=== PATIENT | female | born 1960 | race Two or more races ===

== ENCOUNTER 2016-10-16 10:13 | Emergency (ER) | payer OTHER ==
[2016-10-16 10:20] VITALS: BMI 36.8
--- NOTE | 2016-10-16 10:26 | PDOC ---
History of Present Illness - History of Present Illness Initial Comments: 10/16/16 10:51 The patient is a 56 year old female, with a significant past medical history hypertension, hyperlipidemia, and depression, taking metformin in anticipation for Lap Band procedure, who presents to the emergency department with one week of right lower back pain which radiates to the right side of her abdomen and right lower extremity. She reports the pain is sharp and constant. She describes the pain as a cecily as the pain radiates to the right side of her lower abdomen from her lower back. She states her pain is exacerbated when she bends over or lifts her right lower extremity. She denies chest pain, shortness of breath, headache and dizziness. She denies fever, chills, nausea, vomit, diarrhea and constipation. She denies dysuria, frequency, urgency and hematuria. Allergies: Penicillins Social history: denies toxic habits <Camila Link - Last Filed: 10/16/16 11:34> <Eric Cox - Last Filed: 10/16/16 13:34> - General Chief Complaint: Pain Stated Complaint: RT SIDE PAIN Time Seen by Provider: 10/16/16 10:25 Past History <Camila Link - Last Filed: 10/16/16 11:34> - Past Medical History HTN: Yes - Psycho/Social/Smoking Cessation Hx Anxiety: No Suicidal Ideation: No Smoking History: Never smoked Hx Alcohol Use: Yes (SOCIAL) Drug/Substance Use Hx: No Substance Use Type: None <Eric Cox - Last Filed: 10/16/16 13:34> - Past Medical History Allergies/Adverse Reactions: Allergies Allergy/AdvReac Type Severity Reaction Status Date / Time Penicillins Allergy Rash Verified 10/16/16 10:20 Home Medications: Ambulatory Orders Amlodipine Besylate [Norvasc -] 5 mg PO DAILY 10/16/16 Atorvastatin Ca [Lipitor] 40 mg PO HS 10/16/16 Benazepril HCl 40 mg PO DAILY 10/16/16 Furosemide [Lasix] 40 mg PO DAILY 10/16/16 Metformin HCl 500 mg PO BID 10/16/16 Ondansetron [Zofran Odt -] 4 mg SL TID #21 od.tablet 10/16/16 Oxycodone HCl/Acetaminophen [Percocet 5-325 mg Tablet] 1 - 2 tab PO Q6H #20 tab MDD 6 10/16/16 Sulfamethoxazole/Trimethoprim [Bactrim Ds Tablet] 1 each PO BID #20 tablet 10/16 Venlafaxine HCl ER [Effexor Xr -] 75 mg PO DAILY 10/16/16 Review of Systems - Review of Systems Able to Perform ROS?: Yes Comments:: 10/16/16 10:51 GENERAL/CONSTITUTIONAL: No fever or chills. No weakness. HEAD, EYES, EARS, NOSE AND THROAT: No change in vision. No ear pain or discharge. No sore throat. CARDIOVASCULAR: No chest pain or shortness of breath. RESPIRATORY: No cough, wheezing, or hemoptysis. GASTROINTESTINAL: No nausea, vomiting, diarrhea or constipation. GENITOURINARY: No dysuria, frequency, or change in urination. MUSCULOSKELETAL: (+) Right sided low back pain radiating to RLE. No joint or muscle swelling or pain. No neck pain. SKIN: No rash NEUROLOGIC: No headache, vertigo, loss of consciousness, or change in strength/ sensation. ENDOCRINE: No increased thirst. No abnormal weight change. HEMATOLOGIC/LYMPHATIC: No anemia, easy bleeding, or history of blood clots. ALLERGIC/IMMUNOLOGIC: No hives or skin allergy. <Camila Link - Last Filed: 10/16/16 11:34> *Physical Exam - Vital Signs Last Vital Signs Temp Pulse Resp BP Pulse Ox 98.9 F 74 20 142/71 100 10/16/16 10:16 10/16/16 10:16 10/16/16 10:16 10/16/16 10:16 10/16/16 10:16 - Physical Exam Comments: 10/16/16 10:52 GENERAL: Awake, alert, and fully oriented, in no acute distress HEAD: No signs of trauma EYES: PERRLA, EOMI, sclera anicteric, conjunctiva clear ENT: Auricles normal inspection, hearing grossly normal, nares patent, oropharynx clear without exudates. Moist mucosa NECK: Normal ROM, supple, no lymphadenopathy, JVD, or masses LUNGS: Breath sounds equal, clear to auscultation bilaterally. No wheezes, and no crackles HEART: Regular rate and rhythm, normal S1 and S2, no murmurs, rubs or gallops ABDOMEN: Soft, nontender, normoactive bowel sounds. No guarding, no rebound. No masses EXTREMITIES: Normal range of motion, no edema. No clubbing or cyanosis. No cords, erythema, or tenderness MUSCULOSKELETAL: (+) tender to palpation at sciatic notch. Positive straight leg raise on the right. NEUROLOGICAL: Cranial nerves II through XII grossly intact. Normal speech, normal gait SKIN: Warm, Dry, normal turgor, no rashes or lesions noted. <Camila Link - Last Filed: 10/16/16 11:34> - Vital Signs Last Vital Signs Temp Pulse Resp BP Pulse Ox 98.9 F 74 20 142/71 100 10/16/16 10:16 10/16/16 10:16 10/16/16 10:16 10/16/16 10:16 10/16/16 10:16 <Eric Cox - Last Filed: 10/16/16 13:34> ED Treatment Course - LABORATORY CBC & Chemistry Diagram: 10/16/16 11:00 10/16/16 11:00 - RADIOLOGY Radiograph Interpretation: 10/16/16 11:34 Lumbar-Sacral Xray was read by Dr. Coon at 11:18 Impression: Minimal degenerative changes. No acute pathology. <Camila Link - Last Filed: 10/16/16 11:34> - LABORATORY CBC & Chemistry Diagram: 10/16/16 11:00 10/16/16 11:00 <Eric Cox - Last Filed: 10/16/16 13:34> Medical Decision Making - Medical Decision Making 10/16/16 10:53 The patient is a 56 year old female who presents with right lower back pain which radiates to her right lower abdomen and down her right lower extremity for about a week. The patients medical history is significant for hypertension, hyperlipidemia, and depression, and states she is taking metformin in anticipation for Lap Band procedure, I will obtain CBC, CMP, urinalysis, urine culture, and Lumbar-sacral Xray to rule out sciatica and UTI. <Camila Link - Last Filed: 10/16/16 11:34> *DC/Admit/Observation/Transfer - Attestations Scribe Attestion: 10/16/16 10:54 Documentation prepared by Camila Link, acting as medical logistics specialist for Eric Cox MD <Camila Link - Last Filed: 10/16/16 11:34> - Attestations Physician Attestion: 10/16/16 10:26 I, Dr. Eric Cox, attest that this document has been prepared under my direction and personally reviewed by me in its entirety. I further attest, that it accurately reflects all work, treatment, procedures and medical decision -making performed by me. <Eric Cox - Last Filed: 10/16/16 13:34> Diagnosis at time of Disposition: Sciatica of right side Urinary tract infection Qualifiers: Urinary tract infection type: acute cystitis Hematuria presence: without hematuria Qualified Code(s): N30.00 - Acute cystitis without hematuria - Prescriptions Prescriptions: Sulfamethoxazole/Trimethoprim [Bactrim Ds Tablet] 1 each PO BID #20 tablet Oxycodone HCl/Acetaminophen [Percocet 5-325 mg Tablet] 1 - 2 tab PO Q6H #20 tab MDD 6 Ondansetron [Zofran Odt -] 4 mg SL TID #21 od.tablet - Patient Instructions Printed Discharge Instructions: DI for Sciatica, DI for Back Pain With Sciatica , DI for Urinary Tract Infection (UTI) Additional Instructions: Mrs Braxton- Alcira this hurts so much. You have two problems. UTI and Sciatica. Follow up with your doctor this week. Percocet is for pain- it may upset your stomach so take the Zofran ODT before you take the percocet. Do not drive if you take the percocet. Percocet is for really bad pain, so only take it if you really need it, otherwise take motrin. Bactrim is the antibiotic for your Urinary Tract Infection.. Take it twice a day for ten days. Return to us if any problems. Best- Dr. Eric Cox
[2016-10-16] MEDS ORDERED: KETOROLAC TROMETHAMINE 60 MG/2 ML VIAL IM ONE (10:43)
[2016-10-16] MEDS ORDERED: KETOROLAC TROMETHAMINE 60 MG/2 ML VIAL ONE (10:47)
[2016-10-16 11:14] LABS: BASOPHIL 0.7 % (0-2.0); EOSINOPHIL 1.8 % (0-4.5); MCH 27.7 pg (25.7-33.7); MCHC 33.1 g/dl (32.0-36.0); MEAN CELL VOLUME 83.6 fl (80-96); MEAN PLT VOLUME 10.4 fl (7.5-11.1); NEUTROPHILS 71.3 % (42.8-82.8); PLATELET COUNT 210 K/MM3 (134-434); RDW 13.7 % (11.6-15.6); WHITE BLOOD COUNT 12.4 K/mm3 (4.0-10.0)
[2016-10-16 11:24] LABS: URINE APPEARANCE CLEAR; URINE BILIRUBIN NEGATIVE (NEGATIVE); URINE BLOOD NEGATIVE (NEGATIVE); URINE COLOR YELLOW; URINE GLUCOSE (UA) NEGATIVE (NEGATIVE); URINE KETONE NEGATIVE (NEGATIVE); URINE NITRITE NEGATIVE (NEGATIVE); URINE PROTEIN NEGATIVE (NEGATIVE); URINE UROBILINOGEN NEGATIVE E.U./dl (0.2-1.0)
[2016-10-16 11:25] LABS: URINE LEUK ESTERASE 3+ (NEGATIVE); URINE MUCUS FEW; URINE RBC 3 /hpf (0-3); URINE WBC 20 /hpf (3-5)
[2016-10-16 11:43] LABS: ALBUMIN 3.5 g/dl (3.4-5.0); ALK PHOS 110 U/L (45-117); ANION GAP 9 (8-16); BILIRUBIN,TOTAL 0.5 mg/dL (0.2-1.0); CALCIUM 9.2 mg/dL (8.5-10.1); CO2 31 mmol/L (21-32); CREATININE 0.6 mg/dL (0.55-1.02); GLUCOSE,RANDOM 95 mg/dL (74-106); SGOT/AST 10 U/L (15-37); SGPT/ALT 15 U/L (12-78)
[2016-10-16 12:18] VITALS: BP 132/67; PULSE 58; TEMP 98.4
[2016-10-16] MEDS ORDERED: SULFAMETHOXAZOLE/TRIMETHOPRIM 800MG/160MG D.S. TABLET PO ONE (13:28)
[2016-10-16] MEDS ORDERED: SULFAMETHOXAZOLE/TRIMETHOPRIM 800MG/160MG D.S. TABLET ONE (13:37)
== END 2016-10-16 13:43 | disposition home or self-care (01) ==
LOC: JER 10:13
PROC: 3E0233Z Introduction of Anti-inflammatory into Muscle, Percutaneous Approach (ICD-10-PCS; principal; 2016-10-16)
DX: M54.41 Lumbago with sciatica, right side (principal); I10 Essential (primary) hypertension; E78.00 Pure hypercholesterolemia, unspecified; F32.9 Major depressive disorder, single episode, unspecified
CPT/HCPCS: 36415; 72100-TC; 80053; 81003; 81015; 85025; 87086; 96372; 99282-25